=== PATIENT | female | born 1985 | race American Indian/Alaskan Native ===

== ENCOUNTER 2018-11-02 16:28 | Emergency (ER) | payer OTHER ==
--- NOTE | 2018-11-02 16:37 | Emergency Department Report ---
Blank Doc - Documentation Documentation: This is a 33-year-old female that presents with intermittent feet/ankle swelling with rash. This initial assessment/diagnostic orders/clinical plan/treatment(s) is/are subject to change based on patient's health status, clinical progression and re- assessment by fellow clinical providers in the ED. Further treatment and workup at subsequent clinical providers discretion. Patient/guardians urged not to elope from the ED as their condition may be serious if not clinically assessed and managed. Initial orders include: 1- Patient sent to [facility] for further evaluation and treatment
[2018-11-02 16:38] VITALS: BP 116/76
[2018-11-02] MEDS ORDERED: BENADRYL PO ONE (19:54)
[2018-11-02] MEDS ORDERED: IBUPROFEN PO ONE (19:54)
--- NOTE | 2018-11-02 20:02 | Emergency Department Report ---
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 lesions triggers rashes red erythematous micropapular no fever no chills no weeping or open sores ED Review of Systems ROS: Stated complaint: FEET AND ANKLES PAIN/EXTREME PAIN Other details as noted in HPI Constitutional: denies: chills, fever Eyes: denies: eye pain, eye discharge, vision change ENT: denies: ear pain, throat pain Respiratory: denies: cough, shortness of breath, wheezing Cardiovascular: denies: chest pain, palpitations Endocrine: no symptoms reported Gastrointestinal: denies: abdominal pain, nausea, diarrhea Genitourinary: denies: urgency, dysuria, discharge Musculoskeletal: denies: back pain, joint swelling, arthralgia Skin: rash Neurological: denies: headache, weakness, paresthesias Psychiatric: denies: anxiety, depression Hematological/Lymphatic: denies: easy bleeding, easy bruising ED Past Medical Hx - Past Medical History Previous Medical History?: No Additional medical history: Bronchitis - Surgical History Past Surgical History?: Yes Additional Surgical History: tubal ligation , hernia - Social History Smoking Status: Never Smoker Substance Use Type: None - Medications Home Medications: Home Medications Medication Instructions Recorded Confirmed Last Taken Type Sulfamethoxazole/Trimethoprim 1 each PO BID #20 tablet 06/16/15 Unknown Rx [Bactrim DS TAB] traMADol [Ultram 50 MG tab] 50 mg PO Q6HR PRN #15 tablet 06/16/15 Unknown Rx Benzonatate [Tessalon Perles] 100 mg PO Q8HR #30 capsule 04/09/18 Unknown Rx Diclofenac Sodium [Voltaren] 100 gm TP Q6H #1 gel..gram. 04/09/18 Unknown Rx Oxymetazoline 0.05% [Afrin] 2 spray NS Q6H #1 bottle 04/09/18 Unknown Rx predniSONE [Deltasone] 20 mg PO BID #10 tablet 04/09/18 Unknown Rx Ibuprofen 800 mg PO TID PRN #30 tablet 11/02/18 Unknown Rx Pramoxine HCl/Calamine [Calamine 1 applicatio TP BID 14 Days #1 11/02/18 Unknown Rx Medicated Lotion] bottle Triamcinolone Aceton 0.1% (Nf) 1 applic TP BID 14 Days #1 tube 11/02/18 Unknown Rx [Kenalog (NF)] diphenhydrAMINE [Benadryl CAP] 25 mg PO Q6HR PRN #30 capsule 11/02/18 Unknown Rx Rash Exam - Exam General: Vital signs noted. No distress. Alert and acting appropriately. HEENT: No Periorbital Edema, No Conjuctival Injection, No Chemosis, No Perioral Edema, No Tongue Edema, No Uvular Edema, No Compromised Airway, No Drooling Lungs: Yes Good Air Exchange (Normal Breath Sounds), No Wheezes, No Ronchi, No Stridor, No Cough, No Labored Respirations, No Retractions, No Use of Accessory Muscles, No Other Abnormal Lung Sounds Heart: Yes Regular, No Murmur Skin: Yes Urticarial Rash, Yes Maculopapular Rash, Yes Tenderness, Yes Erythema, No Bulla(e), No Excoriations, No Weeping, No Edema, No Encrustations, No Other Other: Positive: Abdomen Normal, Neurologic Normal, Musculoskeletal Normal ED Course Vital Signs 11/02/18 16:37 Temperature 98.3 F Pulse Rate 94 H Respiratory 18 Rate Blood Pressure 116/76 O2 Sat by Pulse 98 Oximetry ED Medical Decision Making - Medical Decision Making Dermatitis secondary to insect bites plan Benadryl calamine lotion triamcinolone ointment ibuprofen as needed for pain . No fevers no chills this is not anaphylaxis. rash consistant and chiggers Critical care attestation.: If time is entered above; I have spent that time in minutes in the direct care of this critically ill patient, excluding procedure time. ED Disposition Clinical Impression: Chigger bites, Insect bite or sting Disposition: TO HOME OR SELFCARE Is pt being admited?: No Does the pt Need Aspirin: No Condition: Stable Instructions: Insect Bite or Sting (ED) Prescriptions: diphenhydrAMINE [Benadryl CAP] 25 mg PO Q6HR PRN #30 capsule PRN Reason: Itching Pramoxine HCl/Calamine [Calamine Medicated Lotion] 1 applicatio TP BID 14 Days #1 bottle Ibuprofen 800 mg PO TID PRN #30 tablet PRN Reason: pain Triamcinolone Aceton 0.1% (Nf) [Kenalog (NF)] 1 applic TP BID 14 Days #1 tube Referrals: KIA MONTES MD [Primary Care Provider] - 3-5 Days [facility] [Outside] - 3-5 Days Forms: Work/School Release Form(ED) Time of Disposition: 20:10 (Rizo)
== END 2018-11-02 20:32 | disposition home or self-care (01) ==
LOC: ED 16:28
DX: S60.562A Insect bite (nonvenomous) of left hand, initial encounter (principal); S60.561A Insect bite (nonvenomous) of right hand, initial encounter; S80.862A Insect bite (nonvenomous), left lower leg, initial encounter; S80.861A Insect bite (nonvenomous), right lower leg, initial encounter; B88.0 Other acariasis; Z98.51 Tubal ligation status; Z88.1 Allergy status to other antibiotic agents; W57.XXXA Bitten or stung by nonvenomous insect and other nonvenomous arthropods, initial encounter; Y93.89 Activity, other specified; Y92.89 Other specified places as the place of occurrence of the external cause; Y99.8 Other external cause status
CPT/HCPCS: 99282

== ENCOUNTER 2020-01-19 21:49 | Emergency (ER) | payer MEDICAID, OTHER ==
[2020-01-19 22:03] VITALS: BP 125/79
--- NOTE | 2020-01-20 01:43 | Emergency Department Report ---
ED General Adult HPI - General Chief complaint: Earache Stated complaint: HEADACHE EAR PAIN VOMITING Time Seen by Provider: 01/20/20 00:56 Source: patient Mode of arrival: Ambulatory Limitations: No Limitations - History of Present Illness Initial comments: Patient is a 34-year-old female who presents emergency room with complaints of left ear pain that began 2 weeks ago. She states she has also had left lower dental pain that began a few days ago. She states that she last went to a dentist a year ago and was advised that she had a impacted wisdom tooth that needed to be removed but she did not have that performed. She states that she also had an episode of vomiting after she ate [employer] today. She denies any fever, diarrhea, abdominal pain, urinary symptoms. she has had no further episodes of vomiting. She is able to tolerate p.o. intake. She denies any sick contacts or recent travel. She denies any past medical history. She has an allergy to amoxicillin. She states her last menstrual cycle was December 22. - Related Data Previous Rx's Medication Instructions Recorded Last Taken Type Sulfamethoxazole/Trimethoprim 1 each PO BID #20 tablet 06/16/15 Unknown Rx [Bactrim DS TAB] traMADoL [Ultram 50 MG tab] 50 mg PO Q6HR PRN #15 tablet 06/16/15 Unknown Rx Benzonatate [Tessalon Perles] 100 mg PO Q8HR #30 capsule 04/09/18 Unknown Rx Diclofenac Sodium [Voltaren] 100 gm TP Q6H #1 gel..gram. 04/09/18 Unknown Rx Oxymetazoline 0.05% [Afrin] 2 spray NS Q6H #1 bottle 04/09/18 Unknown Rx predniSONE [Deltasone] 20 mg PO BID #10 tablet 04/09/18 Unknown Rx Ibuprofen [Ibuprofen 800] 800 mg PO TID PRN #30 tablet 11/02/18 Unknown Rx Pramoxine HCl/Calamine [Calamine 1 applicatio TP BID 14 Days #1 11/02/18 Unknown Rx Medicated Lotion] bottle Triamcinolone Aceton 0.1% (Nf) 1 applic TP BID 14 Days #1 tube 11/02/18 Unknown Rx [Kenalog (NF)] diphenhydrAMINE [Benadryl CAP] 25 mg PO Q6HR PRN #30 capsule 11/02/18 Unknown Rx Clindamycin [Clindamycin CAP] 450 mg PO TID 7 Days #63 capsule 01/20/20 Unknown Rx Ibuprofen [Motrin 600 MG tab] 600 mg PO Q8H PRN #14 tablet 01/20/20 Unknown Rx Ondansetron [Zofran Odt] 4 mg PO Q8HR PRN #10 tab.rapdis 01/20/20 Unknown Rx Allergies Allergy/AdvReac Type Severity Reaction Status Date / Time amoxicillin Allergy Rash Verified 11/02/18 16:31 ED Review of Systems ROS: Stated complaint: HEADACHE EAR PAIN VOMITING Other details as noted in HPI Comment: All other systems reviewed and negative ED Past Medical Hx - Past Medical History Previous Medical History?: No Additional medical history: Bronchitis - Surgical History Past Surgical History?: Yes Additional Surgical History: tubal ligation , hernia - Social History Smoking Status: Never Smoker Substance Use Type: None - Medications Home Medications: Home Medications Medication Instructions Recorded Confirmed Last Taken Type Sulfamethoxazole/Trimethoprim 1 each PO BID #20 tablet 06/16/15 Unknown Rx [Bactrim DS TAB] traMADoL [Ultram 50 MG tab] 50 mg PO Q6HR PRN #15 tablet 06/16/15 Unknown Rx Benzonatate [Tessalon Perles] 100 mg PO Q8HR #30 capsule 04/09/18 Unknown Rx Diclofenac Sodium [Voltaren] 100 gm TP Q6H #1 gel..gram. 04/09/18 Unknown Rx Oxymetazoline 0.05% [Afrin] 2 spray NS Q6H #1 bottle 04/09/18 Unknown Rx predniSONE [Deltasone] 20 mg PO BID #10 tablet 04/09/18 Unknown Rx Ibuprofen [Ibuprofen 800] 800 mg PO TID PRN #30 tablet 11/02/18 Unknown Rx Pramoxine HCl/Calamine [Calamine 1 applicatio TP BID 14 Days #1 11/02/18 Unknown Rx Medicated Lotion] bottle Triamcinolone Aceton 0.1% (Nf) 1 applic TP BID 14 Days #1 tube 11/02/18 Unknown Rx [Kenalog (NF)] diphenhydrAMINE [Benadryl CAP] 25 mg PO Q6HR PRN #30 capsule 11/02/18 Unknown Rx Clindamycin [Clindamycin CAP] 450 mg PO TID 7 Days #63 capsule 01/20/20 Unknown Rx Ibuprofen [Motrin 600 MG tab] 600 mg PO Q8H PRN #14 tablet 01/20/20 Unknown Rx Ondansetron [Zofran Odt] 4 mg PO Q8HR PRN #10 tab.rapdis 01/20/20 Unknown Rx ED Physical Exam - General Limitations: No Limitations General appearance: alert, in no apparent distress - Head Head exam: Present: atraumatic, normocephalic - Eye Eye exam: Present: normal appearance - ENT ENT exam: Present: normal orophraynx, mucous membranes moist, other (mild erythema of the left TM with small amount of purulence, impacted wisdom tooth on the left lower side, no induration or fluctuance, no facial swelling, no trismus, uvula is midline no uvular edema or devation, tolerating secretions, no facial swelling) - Respiratory Respiratory exam: Present: normal lung sounds bilaterally. Absent: respiratory distress, wheezes, rales, rhonchi, stridor, chest wall tenderness, accessory muscle use, decreased breath sounds, prolonged expiratory - Cardiovascular Cardiovascular Exam: Present: regular rate, normal rhythm, normal heart sounds. Absent: systolic murmur, diastolic murmur, rubs, gallop - GI/Abdominal GI/Abdominal exam: Present: soft, normal bowel sounds. Absent: distended, tende rness, guarding, rebound, rigid - Neurological Exam Neurological exam: Present: alert, oriented X3 - Psychiatric Psychiatric exam: Present: normal affect, normal mood - Skin Skin exam: Present: warm, dry, intact ED Course Vital Signs 01/19/20 01/20/20 21:59 01:50 Temperature 98.2 F Pulse Rate 81 77 Respiratory 18 17 Rate Blood Pressure 125/79 O2 Sat by Pulse 99 99 Oximetry ED Medical Decision Making - Medical Decision Making Patient is a 34-year-old female who presents emergency room with complaints of left ear pain that began 2 weeks ago. She states she has also had left lower dental pain that began a few days ago. She states that she last went to a dentist a year ago and was advised that she had a impacted wisdom tooth that needed to be removed but she did not have that performed. She states that she also had an episode of vomiting after she ate [employer] today. She denies any fever, diarrhea, abdominal pain, urinary symptoms. she has had no further episodes of vomiting. She is able to tolerate p.o. intake. She denies any sick contacts or recent travel. She denies any past medical history. She has an allergy to amoxicillin. She states her last menstrual cycle was December 22. vitals are normal. on exam: mild erythema of the left TM with small amount of purulence, impacted wisdom tooth on the left lower side, no induration or fl uctuance, no facial swelling, no trismus, uvula is midline no uvular edema or deviation, tolerating secretions, no facial swelling. Examination consistent with early otitis media. No signs of dental abscess or dental infection at this time. Patient states that she only had one episode of vomiting after eating [employer], she has been able to tolerate p.o. intake without difficulty, she has no abdominal pain, no current vomiting or diarrhea, no fever. Due to penicillin allergy, patient given clindamycin. Advised patient Please take medication as prescribed. Increase your water intake. Please take medication with food. Follow-up with a primary care doctor. Follow-up with a dentist. It is important that you follow-up. Return to emergency room for any new or worsening symptoms. Critical care attestation.: If time is entered above; I have spent that time in minutes in the direct care of this critically ill patient, excluding procedure time. ED Disposition Clinical Impression: Dentalgia Otitis media Qualifiers: Otitis media type: unspecified Chronicity: acute Qualified Code(s): H66.90 - Otitis media, unspecified, unspecified ear Disposition: - TO HOME OR SELFCARE Is pt being admited?: No Does the pt Need Aspirin: No Condition: Stable Instructions: Dental Caries (ED), Otitis Media (ED), Toothache (ED) Additional Instructions: Please take medication as prescribed. Increase your water intake. Please take medication with food. Follow-up with a primary care doctor. Follow-up with a dentist. It is important that you follow-up. Return to emergency room for any new or worsening symptoms. Prescriptions: Clindamycin [Clindamycin CAP] 450 mg PO TID 7 Days #63 capsule Ibuprofen [Motrin 600 MG tab] 600 mg PO Q8H PRN #14 tablet PRN Reason: Pain Ondansetron [Zofran Odt] 4 mg PO Q8HR PRN #10 tab.rapdis PRN Reason: Nausea And Vomiting Referrals: [facility] [Outside] - 3-5 Days [facility] [Outside] - 3-5 Days KIA MONTES MD [Staff Physician] - 3-5 Days [facility] [Provider Group] - 3-5 Days [facility] [Outside] - 3-5 Days Forms: Work/School Release Form(ED) Time of Disposition: 01:43 Print Language: AMHARIC
== END 2020-01-20 01:50 | disposition home or self-care (01) ==
LOC: ED 21:49
DX: H66.92 Otitis media, unspecified, left ear (principal); K08.89 Other specified disorders of teeth and supporting structures; Z98.51 Tubal ligation status; Z98.890 Other specified postprocedural states; Z79.1 Long term (current) use of non-steroidal anti-inflammatories (NSAID); Z79.899 Other long term (current) drug therapy; Z88.1 Allergy status to other antibiotic agents
CPT/HCPCS: 99282

== ENCOUNTER 2020-04-27 22:35 | Emergency (ER) | payer MEDICAID ==
[2020-04-28 00:30] VITALS: BP 134/78
[2020-04-28] MEDS ORDERED: KETOROLAC 10 MG TAB PO ONE (03:25)
--- NOTE | 2020-04-28 03:32 | Emergency Department Report ---
ED General Adult HPI - General Chief complaint: Extremity Injury, Lower Stated complaint: FEET AND LEG PAIN Time Seen by Provider: 04/28/20 02:21 Source: patient Mode of arrival: Ambulatory Limitations: No Limitations - History of Present Illness Initial comments: 34-year-old -Burmese female patient presents with complaints of bilateral ankle pain and swelling x 1 day. Patient states her symptoms began after she worked a 12-hour shift that required her to stand on her feet the entire time. She states she does not typically work for 12 hours at a time and that her symptoms began once she got off from work. She reports that Tylenol typically works for her ankle pain that she experiences after work, however it is not helping this time. She denies any swelling in her legs, recent long travel/surgeries, history of DVT/PE/cancer, hormone use, cough/shortness of breath/hemoptysis, or history of heart/kidney disease. Patient rates her c urrent pain is 8/10 in severity and states the pain is making it difficult to ambulate. Pain worsened after taking a hot bath per patient. -: Sudden - Related Data Previous Rx's Medication Instructions Recorded Last Taken Type Sulfamethoxazole/Trimethoprim 1 each PO BID #20 tablet 06/16/15 Unknown Rx [Bactrim DS TAB] traMADoL [Ultram 50 MG tab] 50 mg PO Q6HR PRN #15 tablet 06/16/15 Unknown Rx Benzonatate [Tessalon Perles] 100 mg PO Q8HR #30 capsule 04/09/18 Unknown Rx Diclofenac Sodium [Voltaren] 100 gm TP Q6H #1 gel..gram. 04/09/18 Unknown Rx Oxymetazoline 0.05% [Afrin] 2 spray NS Q6H #1 bottle 04/09/18 Unknown Rx predniSONE [Deltasone] 20 mg PO BID #10 tablet 04/09/18 Unknown Rx Ibuprofen [Ibuprofen 800] 800 mg PO TID PRN #30 tablet 11/02/18 Unknown Rx Pramoxine HCl/Calamine [Calamine 1 applicatio TP BID 14 Days #1 11/02/18 Unknown Rx Medicated Lotion] bottle Triamcinolone Aceton 0.1% (Nf) 1 applic TP BID 14 Days #1 tube 11/02/18 Unknown Rx [Kenalog (NF)] diphenhydrAMINE [Benadryl CAP] 25 mg PO Q6HR PRN #30 capsule 11/02/18 Unknown Rx Clindamycin [Clindamycin CAP] 450 mg PO TID 7 Days #63 capsule 01/20/20 Unknown Rx Ibuprofen [Motrin 600 MG tab] 600 mg PO Q8H PRN #14 tablet 01/20/20 Unknown Rx Ondansetron [Zofran Odt] 4 mg PO Q8HR PRN #10 tab.rapdis 01/20/20 Unknown Rx Diclofenac Sodium 75 mg PO BID PRN #14 tablet. 04/28/20 Unknown Rx Allergies Allergy/AdvReac Type Severity Reaction Status Date / Time amoxicillin Allergy Rash Verified 11/02/18 16:31 ED Review of Systems ROS: Stated complaint: FEET AND LEG PAIN Other details as noted in HPI Constitutional: denies: chills, fever Respiratory: denies: cough, shortness of breath Cardiovascular: denies: chest pain Endocrine: denies: excessive sweating Musculoskeletal: joint swelling, arthralgia Skin: denies: rash, lesions, change in color ED Past Medical Hx - Past Medical History Previous Medical History?: Yes Additional medical history: Bronchitis - Surgical History Past Surgical History?: Yes Additional Surgical History: tubal ligation , hernia - Social History Smoking Status: Never Smoker Substance Use Type: None - Medications Home Medications: Home Medications Medication Instructions Recorded Confirmed Last Taken Type Sulfamethoxazole/Trimethoprim 1 each PO BID #20 tablet 06/16/15 Unknown Rx [Bactrim DS TAB] traMADoL [Ultram 50 MG tab] 50 mg PO Q6HR PRN #15 tablet 06/16/15 Unknown Rx Benzonatate [Tessalon Perles] 100 mg PO Q8HR #30 capsule 04/09/18 Unknown Rx Diclofenac Sodium [Voltaren] 100 gm TP Q6H #1 gel..gram. 04/09/18 Unknown Rx Oxymetazoline 0.05% [Afrin] 2 spray NS Q6H #1 bottle 04/09/18 Unknown Rx predniSONE [Deltasone] 20 mg PO BID #10 tablet 04/09/18 Unknown Rx Ibuprofen [Ibuprofen 800] 800 mg PO TID PRN #30 tablet 11/02/18 Unknown Rx Pramoxine HCl/Calamine [Calamine 1 applicatio TP BID 14 Days #1 11/02/18 Unknown Rx Medicated Lotion] bottle Triamcinolone Aceton 0.1% (Nf) 1 applic TP BID 14 Days #1 tube 11/02/18 Unknown Rx [Kenalog (NF)] diphenhydrAMINE [Benadryl CAP] 25 mg PO Q6HR PRN #30 capsule 11/02/18 Unknown Rx Clindamycin [Clindamycin CAP] 450 mg PO TID 7 Days #63 capsule 01/20/20 Unknown Rx Ibuprofen [Motrin 600 MG tab] 600 mg PO Q8H PRN #14 tablet 01/20/20 Unknown Rx Ondansetron [Zofran Odt] 4 mg PO Q8HR PRN #10 tab.rapdis 01/20/20 Unknown Rx Diclofenac Sodium 75 mg PO BID PRN #14 tablet.dr 04/28/20 Unknown Rx ED Physical Exam - General Limitations: No Limitations General appearance: alert, in no apparent distress - Head Head exam: Present: atraumatic, normocephalic - Eye Eye exam: Present: normal appearance - ENT ENT exam: Present: mucous membranes moist - Neck Neck exam: Present: normal inspection - Respiratory Respiratory exam: Present: normal lung sounds bilaterally. Absent: respiratory distress - Cardiovascular Cardiovascular Exam: Present: regular rate, normal rhythm - GI/Abdominal GI/Abdominal exam: Present: soft. Absent: distended - Extremities Exam Extremities exam: Present: full ROM, joint swelling (Mild nonpitting edema noted to ankles bilaterally; no swelling or edema noted to legs bilaterally; ankles are tender to palpation without erythema or induration; pedal pulses are normal bilaterally with normal sensation). Absent: calf tenderness - Neurological Exam Neurological exam: Present: alert, oriented X3 - Psychiatric Psychiatric exam: Present: normal affect, normal mood - Skin Skin exam: Present: warm, dry, intact, normal color. Absent: rash, cyanosis, ecchymosis ED Course Vital Signs 04/28/20 00:21 Temperature 98 F Pulse Rate 69 Respiratory 18 Rate Blood Pressure 134/78 O2 Sat by Pulse 97 Oximetry ED Medical Decision Making - Medical Decision Making 34-year-old -Burm[place] female patient presents with complaints of bilateral ankle pain and swelling x 1 day. Patient states her symptoms began after she worked a 12-hour shift that required her to stand on her feet the entire time. She states she does not typically work for 12 hours at a time and that her symptoms began once she got off from work. She reports that Tylenol typically works for her ankle pain that she experiences after work, however it is not helping this time. She denies any swelling in her legs, recent long travel/surgeries, history of DVT/PE/cancer, hormone use, cough/shortness of breath/hemoptysis, or history of heart/kidney disease. Patient rates her current pain is 8/10 in severity and states the pain is making it difficult to ambulate. Pain worsened after taking a hot bath per patient. On exam, there is mild nonpitting edema noted bilaterally in the ankles without calf pain or leg swelling noted. PERC score = 0. Edema appears to be dependent. Recommend rice and NSAIDs with follow-up with PCP. Vitals are normal, patient is well-appearing, and she is stable for discharge home. Strict return precautions were discussed in detail with patient who verbalizes understanding. Critical care attestation.: If time is entered above; I have spent that time in minutes in the direct care of this critically ill patient, excluding procedure time. ED Disposition Clinical Impression: Dependent edema, Bilateral ankle joint pain Disposition: TO HOME OR SELFCARE Is pt being admited?: No Condition: Stable Instructions: Leg Edema (ED), Arthralgia (ED) Prescriptions: Diclofenac Sodium 75 mg PO BID PRN #14 tablet.dr SOSA Reason: Pain Referrals: PRIMARY CARE, [Primary Care Provider] - 3-5 Days
== END 2020-04-28 04:38 | disposition home or self-care (01) ==
LOC: ED 22:35
DX: M25.571 Pain in right ankle and joints of right foot (principal); M25.572 Pain in left ankle and joints of left foot; R60.9 Edema, unspecified; Z98.890 Other specified postprocedural states; Z98.51 Tubal ligation status; Z79.1 Long term (current) use of non-steroidal anti-inflammatories (NSAID); Z79.2 Long term (current) use of antibiotics; Z79.899 Other long term (current) drug therapy; Z88.1 Allergy status to other antibiotic agents

== ENCOUNTER 2020-05-04 15:54 | Emergency (ER) | payer MEDICAID ==
[2020-05-04 16:47] VITALS: BP 133/84
--- NOTE | 2020-05-04 20:20 | Emergency Department Report ---
ED Extremity Problem HPI - General Chief complaint: Extremity Injury, Lower Stated complaint: LT ANKLE SWOLLEN Time Seen by Provider: 05/04/20 19:42 Source: patient Mode of arrival: Ambulatory Limitations: No Limitations - History of Present Illness Initial comments: Patient is a 34-year-old female presents emergency room with complaints of left heel pain that began 2 days ago. She denies any fall or injury. She states that intermittently she has leg swelling when she is at work on her feet for 10 hours. She states that when she gets home and gets off her feet the swelling completely resolves. She denies ever having this heel pain in the past. She denies any numbness or weakness. She denies any calf pain or swelling, fever, vomiting, cough, shortness of breath. No past medical history. Allergy to amoxicillin. - Related Data Previous Rx's Medication Instructions Recorded Last Taken Type Sulfamethoxazole/Trimethoprim 1 each PO BID #20 tablet 06/16/15 Unknown Rx [Bactrim DS TAB] traMADoL [Ultram 50 MG tab] 50 mg PO Q6HR PRN #15 tablet 06/16/15 Unknown Rx Benzonatate [Tessalon Perles] 100 mg PO Q8HR #30 capsule 04/09/18 Unknown Rx Diclofenac Sodium [Voltaren] 100 gm TP Q6H #1 gel..gram. 04/09/18 Unknown Rx Oxymetazoline 0.05% [Afrin] 2 spray NS Q6H #1 bottle 04/09/18 Unknown Rx predniSONE [Deltasone] 20 mg PO BID #10 tablet 04/09/18 Unknown Rx Ibuprofen [Ibuprofen 800] 800 mg PO TID PRN #30 tablet 11/02/18 Unknown Rx Pramoxine HCl/Calamine [Calamine 1 applicatio TP BID 14 Days #1 11/02/18 Unknown Rx Medicated Lotion] bottle Triamcinolone Aceton 0.1% (Nf) 1 applic TP BID 14 Days #1 tube 11/02/18 Unknown Rx [Kenalog (NF)] diphenhydrAMINE [Benadryl CAP] 25 mg PO Q6HR PRN #30 capsule 11/02/18 Unknown Rx Clindamycin [Clindamycin CAP] 450 mg PO TID 7 Days #63 capsule 01/20/20 Unknown Rx Ibuprofen [Motrin 600 MG tab] 600 mg PO Q8H PRN #14 tablet 01/20/20 Unknown Rx Ondansetron [Zofran Odt] 4 mg PO Q8HR PRN #10 tab.rapdis 01/20/20 Unknown Rx Diclofenac Sodium 75 mg PO BID PRN #14 tablet. 04/28/20 Unknown Rx Naproxen [EC-Naprosyn] 500 mg PO BID PRN #14 tablet. 05/04/20 Unknown Rx Allergies Allergy/AdvReac Type Severity Reaction Status Date / Time amoxicillin Allergy Rash Verified 11/02/18 16:31 ED Review of Systems ROS: Stated complaint: LT ANKLE SWOLLEN Other details as noted in HPI Comment: All other systems reviewed and negative ED Past Medical Hx - Past Medical History Previous Medical History?: Yes Additional medical history: Bronchitis - Surgical History Past Surgical History?: Yes Additional Surgical History: tubal ligation , hernia - Social History Smoking Status: Never Smoker Substance Use Type: None - Medications Home Medications: Home Medications Medication Instructions Recorded Confirmed Last Taken Type Sulfamethoxazole/Trimethoprim 1 each PO BID #20 tablet 06/16/15 Unknown Rx [Bactrim DS TAB] traMADoL [Ultram 50 MG tab] 50 mg PO Q6HR PRN #15 tablet 06/16/15 Unknown Rx Benzonatate [Tessalon Perles] 100 mg PO Q8HR #30 capsule 04/09/18 Unknown Rx Diclofenac Sodium [Voltaren] 100 gm TP Q6H #1 gel..gram. 04/09/18 Unknown Rx Oxymetazoline 0.05% [Afrin] 2 spray NS Q6H #1 bottle 04/09/18 Unknown Rx predniSONE [Deltasone] 20 mg PO BID #10 tablet 04/09/18 Unknown Rx Ibuprofen [Ibuprofen 800] 800 mg PO TID PRN #30 tablet 11/02/18 Unknown Rx Pramoxine HCl/Calamine [Calamine 1 applicatio TP BID 14 Days #1 11/02/18 Unknown Rx Medicated Lotion] bottle Triamcinolone Aceton 0.1% (Nf) 1 applic TP BID 14 Days #1 tube 11/02/18 Unknown Rx [Kenalog (NF)] diphenhydrAMINE [Benadryl CAP] 25 mg PO Q6HR PRN #30 capsule 11/02/18 Unknown Rx Clindamycin [Clindamycin CAP] 450 mg PO TID 7 Days #63 capsule 01/20/20 Unknown Rx Ibuprofen [Motrin 600 MG tab] 600 mg PO Q8H PRN #14 tablet 01/20/20 Unknown Rx Ondansetron [Zofran Odt] 4 mg PO Q8HR PRN #10 tab.rapdis 01/20/20 Unknown Rx Diclofenac Sodium 75 mg PO BID PRN #14 tablet. 04/28/20 Unknown Rx Naproxen [EC-Naprosyn] 500 mg PO BID PRN #14 tablet. 05/04/20 Unknown Rx ED Physical Exam - General Limitations: No Limitations General appearance: alert, in no apparent distress - Head Head exam: Present: atraumatic, normocephalic - Eye Eye exam: Present: normal appearance - ENT ENT exam: Present: mucous membranes moist - Respiratory Respiratory exam: Absent: respiratory distress, accessory muscle use - Extremities Exam Extremities exam: Present: other (mild ttp to the left posterior heel, no deformity, no edema, no ecchymosis, FROM of the left knee, ankle, foot, and toes, no leg edema bilaterally, no calf edema bilaterally, no calf ttp bilaterally, there is no erythema, no increased warmth, neurovascularly intact) - Neurological Exam Neurological exam: Present: alert, oriented X3 - Psychiatric Psychiatric exam: Present: normal affect, normal mood - Skin Skin exam: Present: warm, dry ED Course Vital Signs 05/04/20 16:43 Temperature 98.7 F Pulse Rate 87 Respiratory 18 Rate Blood Pressure 133/84 O2 Sat by Pulse 100 Oximetry ED Medical Decision Making - Medical Decision Making Patient is a 34-year-old female presents emergency room with complaints of left heel pain that began 2 days ago. She denies any fall or injury. She states that intermittently she has leg swelling when she is at work on her feet for 10 hours. She states that when she gets home and gets off her feet the swelling completely resolves. She denies ever having this heel pain in the past. She denies any numbness or weakness. She denies any calf pain or swelling, fever, vomiting, cough, shortness of breath. No past medical history. Allergy to amoxicillin. vitals are normal. on exam: mild ttp to the left posterior heel, no deformity, no edema, no ecchymosis, FROM of the left knee, ankle, foot, and toes, no leg edema bilaterally, no calf edema bilaterally, no calf ttp bilaterally, there is no erythema, no increased warmth, neurovascularly intact. Symptoms and examination could be related to calcaneal spur versus arthritis versus plantar fasciitis. She has no clinical signs of DVT, gout, septic joint, no clinical signs of vasculitis or PVD. Patient given prescription for naproxen. Advised patient Please take medication as prescribed. May soak in Epson salt. May ice for 15 minutes at a time, rest, elevate the legs. May use arthritis ointment rub or [place] balm ointment. Follow-up with an orthopedic doctor. May use orthopedic inserts. May wear compression stockings when you are on your feet. Return to emergency room for any new or worsening symptoms. Critical care attestation.: If time is entered above; I have spent that time in minutes in the direct care of this critically ill patient, excluding procedure time. ED Disposition Clinical Impression: Pain of left heel Disposition: DC-01 TO HOME OR SELFCARE Is pt being admited?: No Does the pt Need Aspirin: No Condition: Stable Instructions: Arthralgia (ED) Additional Instructions: Please take medication as prescribed. May soak in Epson salt. May ice for 15 minutes at a time, rest, elevate the legs. May use arthritis ointment rub or [place] balm ointment. Follow-up with an orthopedic doctor. May use orthopedic inserts. May wear compression stockings when you are on your feet. Return to emergency room for any new or worsening symptoms. Prescriptions: Naproxen [EC-Naprosyn] 500 mg PO BID PRN #14 tablet.dr SOSA Reason: pain Referrals: PRIMARY MD WAYNE [Primary Care Provider] - 2-3 Days ALLEN SHAW MD [Staff Physician] - 2-3 Days [facility] [Provider Group] - 2-3 Days Forms: Work/School Release Form(ED) Time of Disposition: 20:19 Print Language: CAMEROONIAN
== END 2020-05-04 20:30 | disposition home or self-care (01) ==
LOC: ED 15:54
DX: M79.672 Pain in left foot (principal); M79.89 Other specified soft tissue disorders; Z98.51 Tubal ligation status; Z98.890 Other specified postprocedural states; Z79.1 Long term (current) use of non-steroidal anti-inflammatories (NSAID); Z79.2 Long term (current) use of antibiotics; Z79.899 Other long term (current) drug therapy; Z88.1 Allergy status to other antibiotic agents
CPT/HCPCS: 99282

== ENCOUNTER 2020-10-18 21:02 | Emergency (ER) | payer MEDICAID ==
[2020-10-18 21:28] VITALS: BP 112/78
--- NOTE | 2020-10-18 21:29 | Event Note ---
ED Screening Note Date of service: 10/18/20 Time: 21:28 ED Screening Note: Patient complains of chest pain and shortness of breath x 1 day History of asthma States chest feels congested No wheezing noted on exam This initial assessment/diagnostic orders/clinical plan/treatment(s) is/are subject to change based on patients health status, clinical progression and re- assessment by fellow clinical providers in the ED. Further treatment and workup at subsequent clinical providers discretion. Patient/guardian urged not to elope from the ED as their condition may be serious if not clinically assessed and managed. Initial orders include: X-ray EKG labs
--- NOTE | 2020-10-18 22:09 | XRay Report ---
CHEST 2 VIEWS INDICATION / CLINICAL INFORMATION: SOB, CP. COMPARISON: 04/09/2018 FINDINGS: SUPPORT DEVICES: None. HEART / MEDIASTINUM: No significant abnormality. LUNGS / PLEURA: No significant pulmonary or pleural abnormality. No pneumothorax. ADDITIONAL FINDINGS: No significant additional findings. IMPRESSION: 1. No acute findings. No significant interval change. Signer Name: Matt Hanson MD Signed: 10/18/2020 10:04 PM Workstation Name: [id number]
[2020-10-18 22:11] LABS: Basophils % (Auto) 0.3 % (0.0-1.8); Eosinophils # (Auto) 0.1 K/mm3 (0.0-0.4); Eosinophils % (Auto) 0.9 % (0.0-4.3); Hematocrit 34.8 % (30.3-42.9); Lymphocytes # (Auto) 2.5 K/mm3 (1.2-5.4); Lymphocytes % (Auto) 17.4 % (13.4-35.0); Mean Corpuscular HGB Conc 35 % (30-34); Mean Corpuscular Volume 77 fl (79-97); Monocytes # (Auto) 1.2 K/mm3 (0.0-0.8); Monocytes % (Auto) 8.5 % (0.0-7.3); Platelet Count 378 K/mm3 (140-440); Red Cell Distribution Width 17.3 % (13.2-15.2)
[2020-10-18 22:30] LABS: Alanine Aminotransferase 20 units/L (7-56); Blood Urea Nitrogen 10 mg/dL (7-17); Calcium 8.9 mg/dL (8.4-10.2); Hemolysis Index 3
--- NOTE | 2020-10-18 22:30 | Emergency Department Report ---
ED General Adult HPI - General Chief complaint: Upper Respiratory Infection Stated complaint: SOB PUI?: No Time Seen by Provider: 10/18/20 21:27 Source: patient Mode of arrival: Ambulatory Limitations: No Limitations - History of Present Illness Initial comments: 35-year-old -Irish female, complaining of a few day history of cough congestion with mucus production sinus pressure sinus daily with nasal discharge. No hemoptysis, hematuria hematochezia. No known sick contacts no no known contact with coronavirus. She reports no fevers chills or sweats but has felt somewhat feverish and mild mild coryza. States that she frequently gets bouts bronchitis and pharyngitis and feels like she is having usual biannual episodes Consistency: constant Improves with: cold therapy Worsens with: none Associated Symptoms: cough - Related Data Previous Rx's Medication Instructions Recorded Last Taken Type Sulfamethoxazole/Trimethoprim 1 each PO BID #20 tablet 06/16/15 Unknown Rx [Bactrim DS TAB] traMADoL [Ultram 50 MG tab] 50 mg PO Q6HR PRN #15 tablet 06/16/15 Unknown Rx Benzonatate [Tessalon Perles] 100 mg PO Q8HR #30 capsule 04/09/18 Unknown Rx Diclofenac Sodium [Voltaren] 100 gm TP Q6H #1 gel..gram. 04/09/18 Unknown Rx Oxymetazoline 0.05% [Afrin] 2 spray NS Q6H #1 bottle 04/09/18 Unknown Rx predniSONE [Deltasone] 20 mg PO BID #10 tablet 04/09/18 Unknown Rx Ibuprofen [Ibuprofen 800] 800 mg PO TID PRN #30 tablet 11/02/18 Unknown Rx Pramoxine HCl/Calamine [Calamine 1 applicatio TP BID 14 Days #1 11/02/18 Unknown Rx Medicated Lotion] bottle Triamcinolone Aceton 0.1% (Nf) 1 applic TP BID 14 Days #1 tube 11/02/18 Unknown Rx [Kenalog (NF)] diphenhydrAMINE [Benadryl CAP] 25 mg PO Q6HR PRN #30 capsule 11/02/18 Unknown Rx Clindamycin [Clindamycin CAP] 450 mg PO TID 7 Days #63 capsule 01/20/20 Unknown Rx Ibuprofen [Motrin 600 MG tab] 600 mg PO Q8H PRN #14 tablet 01/20/20 Unknown Rx Ondansetron [Zofran Odt] 4 mg PO Q8HR PRN #10 tab.rapdis 01/20/20 Unknown Rx Diclofenac Sodium 75 mg PO BID PRN #14 tablet. 04/28/20 Unknown Rx Naproxen [EC-Naprosyn] 500 mg PO BID PRN #14 tablet. 05/04/20 Unknown Rx Albuterol Mdi (or & Nicu Only) 2 puff IH QID PRN #1 inhalation 10/18/20 Unknown Rx [ProAir HFA Inhaler] Azithromycin [Zithromax] 500 mg PO QDAY #5 tablet 10/18/20 Unknown Rx Benzonatate [Tessalon Perles] 100 mg PO Q8HR #20 capsule 10/18/20 Unknown Rx predniSONE [Deltasone] 50 mg PO QDAY #5 tab 10/18/20 Unknown Rx Allergies Allergy/AdvReac Type Severity Reaction Status Date / Time amoxicillin Allergy Rash Verified 11/02/18 16:31 ED Review of Systems ROS: Stated complaint: SOB Other details as noted in HPI Comment: All other systems reviewed and negative ED Past Medical Hx - Past Medical History Hx GERD: Yes Additional medical history: Bronchitis - Surgical History Additional Surgical History: tubal ligation , hernia - Social History Smoking Status: Former Smoker - Medications Home Medications: Home Medications Medication Instructions Recorded Confirmed Last Taken Type Sulfamethoxazole/Trimethoprim 1 each PO BID #20 tablet 06/16/15 Unknown Rx [Bactrim DS TAB] traMADoL [Ultram 50 MG tab] 50 mg PO Q6HR PRN #15 tablet 06/16/15 Unknown Rx Benzonatate [Tessalon Perles] 100 mg PO Q8HR #30 capsule 04/09/18 Unknown Rx Diclofenac Sodium [Voltaren] 100 gm TP Q6H #1 gel..gram. 04/09/18 Unknown Rx Oxymetazoline 0.05% [Afrin] 2 spray NS Q6H #1 bottle 04/09/18 Unknown Rx predniSONE [Deltasone] 20 mg PO BID #10 tablet 04/09/18 Unknown Rx Ibuprofen [Ibuprofen 800] 800 mg PO TID PRN #30 tablet 11/02/18 Unknown Rx Pramoxine HCl/Calamine [Calamine 1 applicatio TP BID 14 Days #1 11/02/18 Unknown Rx Medicated Lotion] bottle Triamcinolone Aceton 0.1% (Nf) 1 applic TP BID 14 Days #1 tube 11/02/18 Unknown Rx [Kenalog (NF)] diphenhydrAMINE [Benadryl CAP] 25 mg PO Q6HR PRN #30 capsule 11/02/18 Unknown Rx Clindamycin [Clindamycin CAP] 450 mg PO TID 7 Days #63 capsule 01/20/20 Unknown Rx Ibuprofen [Motrin 600 MG tab] 600 mg PO Q8H PRN #14 tablet 01/20/20 Unknown Rx Ondansetron [Zofran Odt] 4 mg PO Q8HR PRN #10 tab.rapdis 01/20/20 Unknown Rx Diclofenac Sodium 75 mg PO BID PRN #14 tablet. 04/28/20 Unknown Rx Naproxen [EC-Naprosyn] 500 mg PO BID PRN #14 tablet. 05/04/20 Unknown Rx Albuterol Mdi (or & Nicu Only) 2 puff IH QID PRN #1 inhalation 10/18/20 Unknown Rx [ProAir HFA Inhaler] Azithromycin [Zithromax] 500 mg PO QDAY #5 tablet 10/18/20 Unknown Rx Benzonatate [Tessalon Perles] 100 mg PO Q8HR #20 capsule 10/18/20 Unknown Rx predniSONE [Deltasone] 50 mg PO QDAY #5 tab 10/18/20 Unknown Rx ED Physical Exam - General Limitations: No Limitations General appearance: alert, in no apparent distress - Head Head exam: Present: atraumatic, normocephalic - Eye Eye exam: Present: normal appearance, PERRL Pupils: Present: normal accommodation - ENT ENT exam: Present: normal exam, normal orophraynx, mucous membranes moist, TM's normal bilaterally - Neck Neck exam: Present: normal inspection, full ROM - Respiratory Respiratory exam: Present: normal lung sounds bilaterally, rhonchi. Absent: respiratory distress - Cardiovascular Cardiovascular Exam: Present: regular rate, normal rhythm. Absent: systolic murmur, diastolic murmur, rubs, gallop - GI/Abdominal GI/Abdominal exam: Present: soft, normal bowel sounds. Absent: tenderness, guarding, hyperactive bowel sounds, hypoactive bowel sounds, mass - Extremities Exam Extremities exam: Present: normal inspection, normal capillary refill - Back Exam Back exam: Present: normal inspection. Absent: CVA tenderness (R), CVA tenderness (L) - Neurological Exam Neurological exam: Present: alert, oriented X3, CN II-XII intact - Psychiatric Psychiatric exam: Present: normal affect, normal mood - Skin Skin exam: Present: warm, dry, intact, normal color. Absent: rash ED Course Vital Signs 10/18/20 21:25 Temperature 98.7 F Pulse Rate 93 H Respiratory 18 Rate Blood Pressure 112/78 O2 Sat by Pulse 97 Oximetry ED Medical Decision Making - Lab Data Result diagrams: 10/18/20 21:55 - Radiology Data [address] [place] [address] XRay Report Signed Patient: TITO GAN MR#: [id number] : 1985 Acct:[id number] Age/Sex: 35 / F ADM Date: 10/18/20 Loc: ED Attending Dr: Ordering Physician: NEVILLE STRICKLAND Date of Service: 10/18/20 Procedure(s): XR chest routine 2V Accession Number(s): [id number] cc: NEVILLE STRICKLAND Fluoro Time In Minutes: CHEST 2 VIEWS INDICATION / CLINICAL INFORMATION: SOB, CP. COMPARISON: 04/09/2018 FINDINGS: SUPPORT DEVICES: None. HEART / MEDIASTINUM: No significant abnormality. LUNGS / PLEURA: No significant pulmonary or pleural abnormality. No pneumothorax. ADDITIONAL FINDINGS: No significant additional findings. IMPRESSION: 1. No acute findings. No significant interval change. Signer Name: Matt Quijano MD Signed: 10/18/2020 10:04 PM Workstation Name: [id number] Transcribed By: Dictated By: MATT QUIJANO Electronically Authenticated By: MATT QUIJANO Signed Date/Time: 10/18/202203 DD/ 01 TD/TT: - Medical Decision Making 1. Cough This patient presents with acute cough, most consistent with bronchitis. Differential diagnosis includes asthma, bronchitis, pneumonia, hyperreactive airway disease. Presentation not consistent with acute bacterial pneumonia, influenza, asthma, transient airway hyperresponsiveness. Presentation not consistent with chronic causes of cough (including GERD, asthma, postnasal discharge, medication side effect, CHF, lung cancer or mass). Normal chest x-ray CXR Plan: , supportive care, reassess Critical care attestation.: If time is entered above; I have spent that time in minutes in the direct care of this critically ill patient, excluding procedure time. ED Disposition Clinical Impression: Cough, Bronchitis Disposition: DC-01 TO HOME OR SELFCARE Is pt being admited?: No Does the pt Need Aspirin: No Condition: Stable Instructions: Chronic Bronchitis (ED), Cool Mist Vaporizer, Cough, Adult, [id number], Upper Respiratory Infection, Adult Referrals: PRIMARY CARE, [Primary Care Provider] - 3-5 Days ASTRID HULL MD [Staff Physician] - 3-5 Days
[2020-10-18 22:31] LABS: BUN/Creatinine Ratio 14
--- NOTE | 2020-10-19 08:32 | Electrocardiograph Report ---
[facility] Test Date: 2020-10-18 Test Time: 21:40:33 Pat Name: TITO GAN Department: Room: Gender: F Senior Data Integration Developer: [email or web address] : 1985 Requested By: NEVILLE STRICKLAND Order Number: [id number] Reading MD: Dao Layne Measurements Intervals Prim Rate: 88 P: 62 IN: 167 QRS: 54 QRSD: 68 T: 37 QT: 355 QTc: 429 Interpretive Statements Sinus rhythm No previous ECG available for comparison Electronically Signed On 10-20-2020 6:43:58 PDT by Dao Layne
== END 2020-10-18 23:20 | disposition home or self-care (01) ==
LOC: ED 21:02
DX: J40 Bronchitis, not specified as acute or chronic (principal); K21.9 Gastro-esophageal reflux disease without esophagitis; Z98.51 Tubal ligation status; Z87.891 Personal history of nicotine dependence; Z79.899 Other long term (current) drug therapy; Z88.1 Allergy status to other antibiotic agents
CPT/HCPCS: 36415; 71046; 80053; 84484; 84703; 85025; 93005

== ENCOUNTER 2020-12-03 12:03 | Emergency (ER) | payer MEDICAID ==
[2020-12-03 13:09] VITALS: BP 139/57
--- NOTE | 2020-12-03 13:53 | Emergency Department Report ---
ED ENT HPI - General Chief complaint: Allergic Reaction Stated complaint: SWOLLEN FACE/SINUS PRESSURE Time Seen by Provider: 12/03/20 13:01 Source: patient Mode of arrival: Ambulatory Limitations: No Limitations - History of Present Illness Initial comments: This is a 35-year-old female brought by mother nontoxic, well nourished in appearance, no acute signs of distress presents to the ED with c/o of left earache. Patient denies any ear drainage. Patient denies any trauma to the area. Patient denies any mastoid tenderness or tragus tenderness. Patient denies hearing decrease or hearing changes. Patient denies any fever, chills, nausea, vomiting, chest pain, short of breath, headache or stiff neck. Patient stated allergies amoxicillin. MD complaint: ear pain -: days(s) Location: L ear Severity: mild Severity scale (0 -10): 8 Quality: aching Consistency: constant Improves with: none Worsens with: none Associated Symptoms: denies: fever, cough, gum swelling, toothache, pain with swallowing, sore throat, tinnitus, hearing loss, discharge from ear, rhinorrhea - Related Data Previous Rx's Medication Instructions Recorded Last Taken Type Sulfamethoxazole/Trimethoprim 1 each PO BID #20 tablet 06/16/15 Unknown Rx [Bactrim DS TAB] traMADoL [Ultram 50 MG tab] 50 mg PO Q6HR PRN #15 tablet 06/16/15 Unknown Rx Benzonatate [Tessalon Perles] 100 mg PO Q8HR #30 capsule 04/09/18 Unknown Rx Diclofenac Sodium [Voltaren] 100 gm TP Q6H #1 gel..gram. 04/09/18 Unknown Rx Oxymetazoline 0.05% [Afrin] 2 spray NS Q6H #1 bottle 04/09/18 Unknown Rx predniSONE [Deltasone] 20 mg PO BID #10 tablet 04/09/18 Unknown Rx Ibuprofen [Ibuprofen 800] 800 mg PO TID PRN #30 tablet 11/02/18 Unknown Rx Pramoxine HCl/Calamine [Calamine 1 applicatio TP BID 14 Days #1 11/02/18 Unknown Rx Medicated Lotion] bottle Triamcinolone Aceton 0.1% (Nf) 1 applic TP BID 14 Days #1 tube 11/02/18 Unknown Rx [Kenalog (NF)] diphenhydrAMINE [Benadryl CAP] 25 mg PO Q6HR PRN #30 capsule 11/02/18 Unknown Rx Clindamycin [Clindamycin CAP] 450 mg PO TID 7 Days #63 capsule 01/20/20 Unknown Rx Ibuprofen [Motrin 600 MG tab] 600 mg PO Q8H PRN #14 tablet 01/20/20 Unknown Rx Ondansetron [Zofran Odt] 4 mg PO Q8HR PRN #10 tab.rapdis 01/20/20 Unknown Rx Diclofenac Sodium 75 mg PO BID PRN #14 tablet. 04/28/20 Unknown Rx Naproxen [EC-Naprosyn] 500 mg PO BID PRN #14 tablet. 05/04/20 Unknown Rx Albuterol Mdi (or & Nicu Only) 2 puff IH QID PRN #1 inhalation 10/18/20 Unknown Rx [ProAir HFA Inhaler] Azithromycin [Zithromax] 500 mg PO QDAY #5 tablet 10/18/20 Unknown Rx Benzonatate [Tessalon Perles] 100 mg PO Q8HR #20 capsule 10/18/20 Unknown Rx predniSONE [Deltasone] 50 mg PO QDAY #5 tab 10/18/20 Unknown Rx Azithromycin [Zithromax Z-CHRIS] 250 mg PO DAILY #6 tablet 12/03/20 Unknown Rx Allergies Allergy/AdvReac Type Severity Reaction Status Date / Time amoxicillin Allergy Rash Verified 12/03/20 13:05 monosodium glutamate AdvReac Swelling Verified 12/03/20 13:05 ED Dental HPI - General Chief complaint: Allergic Reaction Stated complaint: SWOLLEN FACE/SINUS PRESSURE Time Seen by Provider: 12/03/20 13:01 Source: patient Mode of arrival: Ambulatory Limitations: No Limitations - Related Data Previous Rx's Medication Instructions Recorded Last Taken Type Sulfamethoxazole/Trimethoprim 1 each PO BID #20 tablet 06/16/15 Unknown Rx [Bactrim DS TAB] traMADoL [Ultram 50 MG tab] 50 mg PO Q6HR PRN #15 tablet 06/16/15 Unknown Rx Benzonatate [Tessalon Perles] 100 mg PO Q8HR #30 capsule 04/09/18 Unknown Rx Diclofenac Sodium [Voltaren] 100 gm TP Q6H #1 gel..gram. 04/09/18 Unknown Rx Oxymetazoline 0.05% [Afrin] 2 spray NS Q6H #1 bottle 04/09/18 Unknown Rx predniSONE [Deltasone] 20 mg PO BID #10 tablet 04/09/18 Unknown Rx Ibuprofen [Ibuprofen 800] 800 mg PO TID PRN #30 tablet 11/02/18 Unknown Rx Pramoxine HCl/Calamine [Calamine 1 applicatio TP BID 14 Days #1 11/02/18 Unknown Rx Medicated Lotion] bottle Triamcinolone Aceton 0.1% (Nf) 1 applic TP BID 14 Days #1 tube 11/02/18 Unknown Rx [Kenalog (NF)] diphenhydrAMINE [Benadryl CAP] 25 mg PO Q6HR PRN #30 capsule 11/02/18 Unknown Rx Clindamycin [Clindamycin CAP] 450 mg PO TID 7 Days #63 capsule 01/20/20 Unknown Rx Ibuprofen [Motrin 600 MG tab] 600 mg PO Q8H PRN #14 tablet 01/20/20 Unknown Rx Ondansetron [Zofran Odt] 4 mg PO Q8HR PRN #10 tab.rapdis 01/20/20 Unknown Rx Diclofenac Sodium 75 mg PO BID PRN #14 tablet. 04/28/20 Unknown Rx Naproxen [EC-Naprosyn] 500 mg PO BID PRN #14 tablet. 05/04/20 Unknown Rx Albuterol Mdi (or & Nicu Only) 2 puff IH QID PRN #1 inhalation 10/18/20 Unknown Rx [ProAir HFA Inhaler] Azithromycin [Zithromax] 500 mg PO QDAY #5 tablet 10/18/20 Unknown Rx Benzonatate [Tessalon Perles] 100 mg PO Q8HR #20 capsule 10/18/20 Unknown Rx predniSONE [Deltasone] 50 mg PO QDAY #5 tab 10/18/20 Unknown Rx Azithromycin [Zithromax Z-CHRIS] 250 mg PO DAILY #6 tablet 12/03/20 Unknown Rx Allergies Allergy/AdvReac Type Severity Reaction Status Date / Time amoxicillin Allergy Rash Verified 12/03/20 13:05 monosodium glutamate AdvReac Swelling Verified 12/03/20 13:05 ED Review of Systems ROS: Stated complaint: SWOLLEN FACE/SINUS PRESSURE Other details as noted in HPI Comment: All other systems reviewed and negative Constitutional: denies: chills, fever Eyes: denies: eye pain, eye discharge, vision change ENT: ear pain. denies: throat pain, dental pain, hearing loss, epistaxis, congestion Respiratory: denies: cough, shortness of breath, wheezing Cardiovascular: denies: chest pain, palpitations Endocrine: no symptoms reported Gastrointestinal: denies: abdominal pain, nausea, diarrhea Genitourinary: denies: urgency, dysuria, discharge Musculoskeletal: denies: back pain, joint swelling, arthralgia Skin: denies: rash, lesions Neurological: denies: headache, weakness, paresthesias Psychiatric: denies: anxiety, depression Hematological/Lymphatic: denies: easy bleeding, easy bruising ED Past Medical Hx - Past Medical History Hx GERD: Yes Additional medical history: Bronchitis - Surgical History Additional Surgical History: tubal ligation , hernia - Social History Smoking Status: Never Smoker Substance Use Type: None - Medications Home Medications: Home Medications Medication Instructions Recorded Confirmed Last Taken Type Sulfamethoxazole/Trimethoprim 1 each PO BID #20 tablet 06/16/15 Unknown Rx [Bactrim DS TAB] traMADoL [Ultram 50 MG tab] 50 mg PO Q6HR PRN #15 tablet 06/16/15 Unknown Rx Benzonatate [Tessalon Perles] 100 mg PO Q8HR #30 capsule 04/09/18 Unknown Rx Diclofenac Sodium [Voltaren] 100 gm TP Q6H #1 gel..gram. 04/09/18 Unknown Rx Oxymetazoline 0.05% [Afrin] 2 spray NS Q6H #1 bottle 04/09/18 Unknown Rx predniSONE [Deltasone] 20 mg PO BID #10 tablet 04/09/18 Unknown Rx Ibuprofen [Ibuprofen 800] 800 mg PO TID PRN #30 tablet 11/02/18 Unknown Rx Pramoxine HCl/Calamine [Calamine 1 applicatio TP BID 14 Days #1 11/02/18 Unknown Rx Medicated Lotion] bottle Triamcinolone Aceton 0.1% (Nf) 1 applic TP BID 14 Days #1 tube 11/02/18 Unknown Rx [Kenalog (NF)] diphenhydrAMINE [Benadryl CAP] 25 mg PO Q6HR PRN #30 capsule 11/02/18 Unknown Rx Clindamycin [Clindamycin CAP] 450 mg PO TID 7 Days #63 capsule 01/20/20 Unknown Rx Ibuprofen [Motrin 600 MG tab] 600 mg PO Q8H PRN #14 tablet 01/20/20 Unknown Rx Ondansetron [Zofran Odt] 4 mg PO Q8HR PRN #10 tab.rapdis 01/20/20 Unknown Rx Diclofenac Sodium 75 mg PO BID PRN #14 tablet. 04/28/20 Unknown Rx Naproxen [EC-Naprosyn] 500 mg PO BID PRN #14 tablet. 05/04/20 Unknown Rx Albuterol Mdi (or & Nicu Only) 2 puff IH QID PRN #1 inhalation 10/18/20 Unknown Rx [ProAir HFA Inhaler] Azithromycin [Zithromax] 500 mg PO QDAY #5 tablet 10/18/20 Unknown Rx Benzonatate [Tessalon Perles] 100 mg PO Q8HR #20 capsule 10/18/20 Unknown Rx predniSONE [Deltasone] 50 mg PO QDAY #5 tab 10/18/20 Unknown Rx Azithromycin [Zithromax Z-CHRIS] 250 mg PO DAILY #6 tablet 12/03/20 Unknown Rx ED Physical Exam - General Limitations: No Limitations General appearance: alert, in no apparent distress - Head Head exam: Present: atraumatic, normocephalic - Eye Eye exam: Present: normal appearance - ENT ENT exam: Present: normal exam, normal orophraynx - Expanded ENT Exam Expanded TM/Canal exam: Erythema: Left TM, Bulging: Left TM Mouth exam: Present: normal external inspection, tongue normal. Absent: drooling, trismus, muffled voice Teeth exam: Present: normal inspection Throat exam: Positive: normal inspection, other (Uvula midline). Negative: tonsillar erythema, tonsillomegaly, tonsillar exudate, R peritonsillar mass, L peritonsillar mass - Neck Neck exam: Present: normal inspection, full ROM. Absent: tenderness, mening ismus, lymphadenopathy - Respiratory Respiratory exam: Absent: respiratory distress - Cardiovascular Cardiovascular Exam: Present: regular rate - Extremities Exam Extremities exam: Present: full ROM - Back Exam Back exam: Present: full ROM - Neurological Exam Neurological exam: Present: alert, oriented X3, normal gait - Psychiatric Psychiatric exam: Present: normal affect, normal mood - Skin Skin exam: Present: warm, dry, intact, normal color. Absent: rash ED Course Vital Signs 12/03/20 13:04 Temperature 99.0 F Pulse Rate 79 Respiratory 18 Rate Blood Pressure 139/57 O2 Sat by Pulse 99 Oximetry - Reevaluation(s) Reevaluation #1: 12/03/20 13:52 Patient is speaking in full sentences with no signs of distress noted. ED Medical Decision Making - Medical Decision Making Patient is stable and was examined by me. Vital signs are stable. Patient be discharged with azithromycin. Patient was instructed to follow-up with a primary care doctor in 3-5 days or if symptoms worsen and continue return to emergency room as soon as possible. At time of discharge, the patient does not seem toxic or ill in appearance. No acute signs of distress noted. Patient agrees to discharge treatment plan of care. No further questions noted by the patient. Critical care attestation.: If time is entered above; I have spent that time in minutes in the direct care of this critically ill patient, excluding procedure time. ED Disposition Clinical Impression: Left otitis media Qualifiers: Otitis media type: unspecified Qualified Code(s): H66.92 - Otitis media, unspecified, left ear Disposition: DC-01 TO HOME OR SELFCARE Is pt being admited?: No Does the pt Need Aspirin: No Condition: Stable Instructions: Otitis Media, Adult, [id number] Additional Instructions: Follow-up with a primary care doctor in 3-5 days or if symptoms worsen and continue return to emergency room as soon as possible. Prescriptions: Azithromycin [Zithromax Z-CHRIS] 250 mg PO DAILY #6 tablet Referrals: SATURNINO BLACK MD [Primary Care Provider] - 3-5 Days KIA MONTES MD [Staff Physician] - 3-5 Days Forms: Work/School Release Form(ED) Time of Disposition: 13:53
== END 2020-12-03 14:32 | disposition home or self-care (01) ==
LOC: ED 12:03
DX: H66.92 Otitis media, unspecified, left ear (principal); K21.9 Gastro-esophageal reflux disease without esophagitis; Z98.51 Tubal ligation status; Z98.890 Other specified postprocedural states; Z79.1 Long term (current) use of non-steroidal anti-inflammatories (NSAID); Z79.899 Other long term (current) drug therapy; Z88.8 Allergy status to other drugs, medicaments and biological substances
CPT/HCPCS: 99282

== ENCOUNTER 2021-01-05 16:16 | Emergency (ER) | payer MEDICAID, OTHER ==
[2021-01-05 17:19] VITALS: BP 125/79
--- NOTE | 2021-01-05 18:15 | Emergency Department Report ---
ED General Adult HPI - General Chief complaint: Headache Stated complaint: FACIAL PRESSURE Time Seen by Provider: 01/05/21 18:11 Source: patient Mode of arrival: Ambulatory Limitations: No Limitations - History of Present Illness Initial comments: 35-year-old female patient presents to the emergency department with complaints of nasal congestion and sinus pressure for 2 weeks. Patient was treated for otitis media with azithromycin approximately 1 week prior to her symptoms. She has been using Denisa-Douglas, Zyrtec, and intranasal steroids with limited relief. Patient has not followed up with her primary care provider. No known sick contacts. Denies fever, sore throat, ear pain, dental pain, neck stiffness, rash, painful extraocular movements, facial swelling. Denies all other complaints at this time. Severity scale (0 -10): 10 - Related Data Previous Rx's Medication Instructions Recorded Last Taken Type Sulfamethoxazole/Trimethoprim 1 each PO BID #20 tablet 06/16/15 Unknown Rx [Bactrim DS TAB] traMADoL [Ultram 50 MG tab] 50 mg PO Q6HR PRN #15 tablet 06/16/15 Unknown Rx Benzonatate [Tessalon Perles] 100 mg PO Q8HR #30 capsule 04/09/18 Unknown Rx Diclofenac Sodium [Voltaren] 100 gm TP Q6H #1 gel..gram. 04/09/18 Unknown Rx Oxymetazoline 0.05% [Afrin] 2 spray NS Q6H #1 bottle 04/09/18 Unknown Rx predniSONE [Deltasone] 20 mg PO BID #10 tablet 04/09/18 Unknown Rx Ibuprofen [Ibuprofen 800] 800 mg PO TID PRN #30 tablet 11/02/18 Unknown Rx Pramoxine HCl/Calamine [Calamine 1 applicatio TP BID 14 Days #1 11/02/18 Unknown Rx Medicated Lotion] bottle Triamcinolone Aceton 0.1% (Nf) 1 applic TP BID 14 Days #1 tube 11/02/18 Unknown Rx [Kenalog (NF)] diphenhydrAMINE [Benadryl CAP] 25 mg PO Q6HR PRN #30 capsule 11/02/18 Unknown Rx Clindamycin [Clindamycin CAP] 450 mg PO TID 7 Days #63 capsule 01/20/20 Unknown Rx Ibuprofen [Motrin 600 MG tab] 600 mg PO Q8H PRN #14 tablet 01/20/20 Unknown Rx Ondansetron [Zofran Odt] 4 mg PO Q8HR PRN #10 tab.rapdis 01/20/20 Unknown Rx Diclofenac Sodium 75 mg PO BID PRN #14 tablet. 04/28/20 Unknown Rx Naproxen [EC-Naprosyn] 500 mg PO BID PRN #14 tablet. 05/04/20 Unknown Rx Albuterol Mdi (or & Nicu Only) 2 puff IH QID PRN #1 inhalation 10/18/20 Unknown Rx [ProAir HFA Inhaler] Azithromycin [Zithromax] 500 mg PO QDAY #5 tablet 10/18/20 Unknown Rx Benzonatate [Tessalon Perles] 100 mg PO Q8HR #20 capsule 10/18/20 Unknown Rx predniSONE [Deltasone] 50 mg PO QDAY #5 tab 10/18/20 Unknown Rx Azithromycin [Zithromax Z-CHRIS] 250 mg PO DAILY #6 tablet 12/03/20 Unknown Rx Naproxen 500 mg PO BID #20 tablet 01/05/21 Unknown Rx Allergies Allergy/AdvReac Type Severity Reaction Status Date / Time amoxicillin Allergy Rash Verified 12/03/20 13:05 monosodium glutamate AdvReac Swelling Verified 12/03/20 13:05 ED Review of Systems ROS: Stated complaint: FACIAL PRESSURE Other details as noted in HPI Other: GENERAL: Negative for fever. ENT: Positive for sinus pressure and nasal congestion. CARDIOVASCULAR: Negative for chest pain. PULMONARY: Negative for shortness of breath. GASTROINTESTINAL: Negative for abdominal pain. MUSCULOSKELETAL: Negative for back pain. NEUROLOGICAL: Negative for headache. INTEGUMENTARY: Negative for rash. ED Past Medical Hx - Past Medical History Previous Medical History?: Yes Hx GERD: Yes Additional medical history: Bronchitis - Surgical History Past Surgical History?: Yes Additional Surgical History: tubal ligation , hernia - Social History Smoking Status: Never Smoker Substance Use Type: None - Medications Home Medications: Home Medications Medication Instructions Recorded Confirmed Last Taken Type Sulfamethoxazole/Trimethoprim 1 each PO BID #20 tablet 06/16/15 Unknown Rx [Bactrim DS TAB] traMADoL [Ultram 50 MG tab] 50 mg PO Q6HR PRN #15 tablet 06/16/15 Unknown Rx Benzonatate [Tessalon Perles] 100 mg PO Q8HR #30 capsule 04/09/18 Unknown Rx Diclofenac Sodium [Voltaren] 100 gm TP Q6H #1 gel..gram. 04/09/18 Unknown Rx Oxymetazoline 0.05% [Afrin] 2 spray NS Q6H #1 bottle 04/09/18 Unknown Rx predniSONE [Deltasone] 20 mg PO BID #10 tablet 04/09/18 Unknown Rx Ibuprofen [Ibuprofen 800] 800 mg PO TID PRN #30 tablet 11/02/18 Unknown Rx Pramoxine HCl/Calamine [Calamine 1 applicatio TP BID 14 Days #1 11/02/18 Unknown Rx Medicated Lotion] bottle Triamcinolone Aceton 0.1% (Nf) 1 applic TP BID 14 Days #1 tube 11/02/18 Unknown Rx [Kenalog (NF)] diphenhydrAMINE [Benadryl CAP] 25 mg PO Q6HR PRN #30 capsule 11/02/18 Unknown Rx Clindamycin [Clindamycin CAP] 450 mg PO TID 7 Days #63 capsule 01/20/20 Unknown Rx Ibuprofen [Motrin 600 MG tab] 600 mg PO Q8H PRN #14 tablet 01/20/20 Unknown Rx Ondansetron [Zofran Odt] 4 mg PO Q8HR PRN #10 tab.rapdis 01/20/20 Unknown Rx Diclofenac Sodium 75 mg PO BID PRN #14 tablet. 04/28/20 Unknown Rx Naproxen [EC-Naprosyn] 500 mg PO BID PRN #14 tablet. 05/04/20 Unknown Rx Albuterol Mdi (or & Nicu Only) 2 puff IH QID PRN #1 inhalation 10/18/20 Unknown Rx [ProAir HFA Inhaler] Azithromycin [Zithromax] 500 mg PO QDAY #5 tablet 10/18/20 Unknown Rx Benzonatate [Tessalon Perles] 100 mg PO Q8HR #20 capsule 10/18/20 Unknown Rx predniSONE [Deltasone] 50 mg PO QDAY #5 tab 10/18/20 Unknown Rx Azithromycin [Zithromax Z-CHRIS] 250 mg PO DAILY #6 tablet 12/03/20 Unknown Rx Naproxen 500 mg PO BID #20 tablet 01/05/21 Unknown Rx ED Physical Exam - General Limitations: No Limitations - Other Other exam information: General: Awake, appropriately interactive, no acute distress. HEENT: Normocephalic, atraumatic. Bilateral frontal and maxillary sinus tenderness. Oral mucosa is moist. Normal otoscopic exam. Normal pharyngeal exam. Normal dental exam. Pupils equal and round. Extraocular movements i ntact and painless. Neck: Supple. Full range of motion intact. Cardiovascular: Normal peripheral perfusion. Pulmonary: No respiratory distress. Patient is speaking normally without use of accessory muscles. Skin: No apparent rashes or lesions. Neurological: No facial asymmetry. Speech is clear. Follows commands. Patient is alert and oriented. Musculoskeletal: Moves all four extremities spontaneously with normal range of motion. Psych: Cooperative. Appropriate mood and affect. ED Course Vital Signs 01/05/21 17:17 Temperature 97.9 F Pulse Rate 80 Respiratory 18 Rate Blood Pressure 125/79 [Right] O2 Sat by Pulse 99 Oximetry ED Medical Decision Making - Medical Decision Making Differential diagnosis including but not limited to: allergic reaction, periorbital/orbital cellulitis, dental infection, sinusitis Patient presents to emergency department with complaints of sinus pressure and nasal congestion for 2 weeks. She is afebrile. Vital signs are stable. No hypoxia, no respiratory distress. Physical exam is remarkable for diffuse sinus tenderness. Patient was already treated with antibiotics for similar symptoms within the last month. She will be discharged home with anti-inflammatory medication to use as an adjunct to her allergy/sinus medications. Emphasized the importance of following up with primary care provider for definitive management of ongoing sinus issues. Patient expressed understanding and is agreeable to plan of care. Strict return precautions provided. Repeat exam is unremarkable and benign. History, exam, diagnostic testing, and current condition do not suggest worrisome pathology to warrant further testing, continued ED treatment, admission, or surgical evaluation at this point. Given the low probability of a significant medical illness, it would be more likely to result in harm than benefit to perform further testing at this stage. Discussed findings, presumptive diagnosis, need for follow-up and specific signs/symptoms that should prompt immediate return to the emergency department. Instructions were explained in detail to the patient in addition to giving written discharge information. Patient expressed understanding and was given the opportunity to ask questions, all of which were satisfactorily answered prior to discharge home. Critical care attestation.: If time is entered above; I have spent that time in minutes in the direct care of this critically ill patient, excluding procedure time. ED Disposition Clinical Impression: Sinusitis Qualifiers: Sinusitis location: unspecified location Chronicity: unspecified Qualified Code(s): J32.9 - Chronic sinusitis, unspecified Disposition: TO HOME OR SELFCARE Is pt being admited?: No Does the pt Need Aspirin: No Condition: Stable Instructions: Sinusitis, Adult Additional Instructions: Take Tylenol every 4 hours as needed for pain. Take Naprosyn twice daily with food as needed for pain. Continue medications as previously prescribed. Follow-up with your primary care provider next week. Call Friday to schedule an appointment. Return to the emergency department immediately for new or worsening symptoms. Prescriptions: Naproxen 500 mg PO BID #20 tablet Referrals: KIA MONTES MD [Staff Physician] - 3-5 Days Time of Disposition: 18:18
== END 2021-01-05 18:26 | disposition home or self-care (01) ==
LOC: ED 16:16
DX: J32.9 Chronic sinusitis, unspecified (principal); K21.9 Gastro-esophageal reflux disease without esophagitis; Z79.899 Other long term (current) drug therapy; Z88.8 Allergy status to other drugs, medicaments and biological substances; Z98.890 Other specified postprocedural states; Z88.0 Allergy status to penicillin; Z98.51 Tubal ligation status
CPT/HCPCS: 99281

== ENCOUNTER 2021-08-13 11:13 | Emergency (ER) | payer MEDICAID ==
[2021-08-13 13:31] VITALS: BP 153/84
--- NOTE | 2021-08-13 14:02 | Emergency Department Report ---
Minor Respiratory - HPI Chief Complaint: Dizziness Stated Complaint: DIZZINESS/EAR PAIN Duration: 10 Pain Location: Nose Severity: mild Minor Respiratory: Yes Able to Tolerate Fluids, No Rhinorrhea, No Ear Pain, No Cough, No Sick Contacts, No Chest Pain, No Shortness of Breath, No Fever Other History: 35 female presents to the ED complaining of dizziness runny nose fatigue x10 days concern for covid . Patient states that she is fully vaccinated. States that she previous had a sinus infection was treated with azithromycin and Zyrtec-D on August 04. Patient has a appointment for rapid Covid test at [facility] tomorrow. Patient has contact with possible Covid exposure. No acute distress noted no ill appearance ED Review of Systems ROS: Stated complaint: DIZZINESS/EAR PAIN Other details as noted in HPI Constitutional: denies: chills, fever Eyes: denies: eye pain, eye discharge, vision change ENT: congestion. denies: ear pain, throat pain Respiratory: denies: cough, shortness of breath, wheezing Cardiovascular: denies: chest pain, palpitations Endocrine: no symptoms reported Gastrointestinal: denies: abdominal pain, nausea, diarrhea Genitourinary: denies: urgency, dysuria, discharge Musculoskeletal: denies: back pain, joint swelling, arthralgia Skin: denies: rash, lesions Neurological: denies: headache, weakness, paresthesias Psychiatric: denies: anxiety, depression Hematological/Lymphatic: denies: easy bleeding, easy bruising ED Past Medical Hx - Past Medical History Previous Medical History?: Yes Hx GERD: Yes Additional medical history: Bronchitis - Surgical History Past Surgical History?: Yes Additional Surgical History: tubal ligation , hernia - Social History Smoking Status: Never Smoker Substance Use Type: None - Medications Home Medications: Home Medications Medication Instructions Recorded Confirmed Last Taken Type Sulfamethoxazole/Trimethoprim 1 each PO BID #20 tablet 06/16/15 Unknown Rx [Bactrim DS TAB] traMADoL [Ultram 50 MG tab] 50 mg PO Q6HR PRN #15 tablet 06/16/15 Unknown Rx Benzonatate [Tessalon Perles] 100 mg PO Q8HR #30 capsule 04/09/18 Unknown Rx Diclofenac Sodium [Voltaren] 100 gm TP Q6H #1 gel..gram. 04/09/18 Unknown Rx Oxymetazoline 0.05% [Afrin] 2 spray NS Q6H #1 bottle 04/09/18 Unknown Rx predniSONE [Deltasone] 20 mg PO BID #10 tablet 04/09/18 Unknown Rx Ibuprofen [Ibuprofen 800] 800 mg PO TID PRN #30 tablet 11/02/18 Unknown Rx Pramoxine HCl/Calamine [Calamine 1 applicatio TP BID 14 Days #1 11/02/18 Unknown Rx Medicated Lotion] bottle Triamcinolone Aceton 0.1% (Nf) 1 applic TP BID 14 Days #1 tube 11/02/18 Unknown Rx [Kenalog (NF)] diphenhydrAMINE [Benadryl CAP] 25 mg PO Q6HR PRN #30 capsule 11/02/18 Unknown Rx Clindamycin [Clindamycin CAP] 450 mg PO TID 7 Days #63 capsule 01/20/20 Unknown Rx Ibuprofen [Motrin 600 MG tab] 600 mg PO Q8H PRN #14 tablet 01/20/20 Unknown Rx Ondansetron [Zofran Odt] 4 mg PO Q8HR PRN #10 tab.rapdis 01/20/20 Unknown Rx Diclofenac Sodium 75 mg PO BID PRN #14 tablet. 04/28/20 Unknown Rx Naproxen [EC-Naprosyn] 500 mg PO BID PRN #14 tablet. 05/04/20 Unknown Rx Albuterol Mdi (or & Nicu Only) 2 puff IH QID PRN #1 inhalation 10/18/20 Unknown Rx [ProAir HFA Inhaler] Azithromycin [Zithromax] 500 mg PO QDAY #5 tablet 10/18/20 Unknown Rx Benzonatate [Tessalon Perles] 100 mg PO Q8HR #20 capsule 10/18/20 Unknown Rx predniSONE [Deltasone] 50 mg PO QDAY #5 tab 10/18/20 Unknown Rx Azithromycin [Zithromax Z-CHRIS] 250 mg PO DAILY #6 tablet 12/03/20 Unknown Rx Naproxen 500 mg PO BID #20 tablet 01/05/21 Unknown Rx Minor Respiratory Exam - Exam General: Vital signs noted. No distress. Alert and acting appropriately. HEENT: Yes Moist Mucous Membranes, No Pharyngeal Erythema, No Pharyngeal Exudates, No Rhinorrhea, No Conjuctival Injection, No Frontal Tenderness, No Maxillary Tenderness Ear: Neither TM Bulge, Neither TM Erythema, Neither EAC Pain, Neither EAC Discharge Neck: Yes Supple, No Adenopathy Lungs: Yes Good Air Exchange, No Wheezes, No Ronchi, No Stridor, No Cough, No Labored Respirations, No Retractions, No Use of Accessory Muscles, No Other Abnormal Lung Sounds Heart: Yes Regular, No Murmur Abdomen: Yes Normal Bowel Sounds, No Tenderness, No Peritoneal Signs Skin: No Rash, No Edema Neurologic: Alert and oriented, no deficits. Musculoskeletal: Unremarkable. ED Course Vital Signs 08/13/21 13:28 Temperature 98 F Pulse Rate 93 H Respiratory 16 Rate Blood Pressure 153/84 [Left] O2 Sat by Pulse 100 Oximetry ED Medical Decision Making - Medical Decision Making 35 female presents to the ED complaining of dizziness runny nose fatigue x10 days concern for covid . Patient states that she is fully vaccinated. States that she previous had a sinus infection was treated with azithromycin and Zyrtec-D on August 04. Patient has a appointment for rapid Covid test at [facility] tomorrow. Patient has contact with possible . Patient to keep appointment with [facility] for Covid testing. Return to ED for any worsening shortness of breath. No acute distress noted at time of discharge. - Differential Diagnosis Covid , influenza, common cold Critical care attestation.: If time is entered above; I have spent that time in minutes in the direct care of this critically ill patient, excluding procedure time. ED Disposition Clinical Impression: Suspected 2019 novel coronavirus infection Disposition: HOME / SELF CARE / HOMELESS Is pt being admited?: No Does the pt Need Aspirin: No Condition: Stable Instructions: COVID-19 Frequently Asked Questions, COVID-19: How to Protect Yourself and Others - CDC, Prevent the Spread of COVID-19 if You Are Sick - CDC Additional Instructions: Return to ED for any worsening symptom Referrals: PRIMARY CARE, [Primary Care Provider] - 3-5 Days Time of Disposition: 14:11
== END 2021-08-13 15:50 | disposition home or self-care (01) ==
LOC: ED 11:13
DX: Z20.822 Contact with and (suspected) exposure to COVID-19 (principal)
CPT/HCPCS: 99282